=== PATIENT | female | born 1955 | race Caucasian/White ===

== ENCOUNTER 2021-03-31 10:31 | Emergency (ER) | payer MEDICARE, OTHER ==
[~2021-03-31] VITALS: Ht 157.5 cm; Wt 60.0 kg
--- NOTE | 2021-03-31 12:08 | NUR ---
ENERGY MANAGER AT BEDSIDE
--- NOTE | 2021-03-31 12:40 | NUR ---
ROAD MECHANIC AND ED MD HAVE DONE BEDSIDE U/S EXAM OF PT'S EYES
[2021-03-31 13:04] VITALS: BP 157/80
== END 2021-03-31 13:06 | disposition home or self-care (01) ==
LOC: ER 10:32
DX: H43.11 Vitreous hemorrhage, right eye (principal); E03.9 Hypothyroidism, unspecified
CPT/HCPCS: 99284